=== PATIENT | male | born 1985 | race Caucasian/White ===

== ENCOUNTER 2017-02-14 20:42 | Emergency (ER) | payer OTHER ==
[~2017-02-14] VITALS: Ht 185.4 cm; Wt 101.5 kg
[2017-02-14 20:49] VITALS: Ht 185.4 cm; Wt 101.5 kg
--- NOTE | 2017-02-14 21:18 | DIAGNOSTIC IMAGING REPORT ---
RIGHT KNEE 3 VIEWS CLINICAL HISTORY: Right knee pain status post trauma COMPARISON: None. DISCUSSION: No fractures or dislocations are visualized. There is no conventional radiographic evidence of a joint effusion. IMPRESSION: No fractures or dislocations identified. Electronically signed by: Brando Garcia M.D. 02/14/2017 9:17 PM Dictated Date/Time: 02/14/2017 9:16 PM
[2017-02-14 21:56] VITALS: BP 154/88; PULSE 97; TEMP 36.6; O2SAT 98
--- NOTE | 2017-02-15 02:34 | EMERGENCY ROOM VISIT NOTE ---
ED Visit Note First contact with patient: 21:27 CHIEF COMPLAINT: knee pain HISTORY OF PRESENT ILLNESS: This 31-year-old patient presents to the emergency department after sustaining an injury to the right knee when he got up from his chair today twisting it. The patient denies any other injuries besides their knee. The patient denies swelling or bruising. There is pain lateral side. They rate the pain as throbbing and 5/10. The patient states they are barely able to walk on it. No numbness or tingling. No previous injuries to this knee. No ankle, foot or hip pain. REVIEW OF SYSTEMS: A 6 system review of systems was completed with positives and pertinent negatives listed in the HPI. ALLERGIES: Grapes MEDICATIONS: None PMH: None SOCIAL HISTORY: No drug use PHYSICAL EXAM: Vital Signs: Reviewed Nurse's notes, vital signs stable. GENERAL : Pleasant male, no acute distress, but appears in pain, well-developed, well- nourished. MENTAL STATUS: Alert, oriented to person place and time, and cooperative. MUSCULOSKELETAL: The right knee is not swollen. There is no ecchymosis. There is no joint effusion present. The patient is tender lateral collateral ligament. There is no joint line tenderness. The patella not subluxate. Range of motion is intact. Strength of the quads and hamstrings is 5/ 5. Leah's is negative. Acsimiro's and Anterior Drawer tests are negative. There is no laxity with varus and valgus stressing. The foot and toes are warm and well-perfused. Dorsalis pedis pulse 2+. Sensation to pain and light touch is intact. Capillary refill less than 2 seconds. EMERGENCY DEPARTMENT COURSE: I examined the patient. X-rays of the right knee were reviewed by myself and read by radiology and reveal no fracture. The patient was placed in a knee immobilizer under my direction and the position was satisfactory. The patient was instructed on the use of crutches. The patient was discharged home in good condition. Patient is advised if symptoms persist to follow-up orthopedics or here in the ER sooner for severe pain, numbness, tingling, inability walk, worsening signs or symptoms or as needed. DIAGNOSIS: Right knee sprain DISCHARGE INSTRUCTIONS: As below Current/Historical Medications No Active Prescriptions or Reported Meds Allergies Coded Allergies: Grape (Verified Allergy, Unknown, hives, 02/14/17) Vital Signs Date Time Temp Pulse Resp B/P (MAP) Pulse Ox O2 Delivery O2 Flow Rate FiO2 02/14/17 21:56 36.6 97 18 154/88 98 02/14/17 20:49 101 20 137/93 96 Room Air Departure Information Impression Primary Impression: Right knee sprain Dispostion Home / Self-Care Condition GOOD Prescriptions No Active Prescriptions or Reported Meds Referrals No Doctor, Assigned (PCP) Yunior Peoples D.O. Forms HOME CARE DOCUMENTATION FORM, Work Instructions, Return To Work: 2 days IMPORTANT VISIT INFORMATION Patient Instructions My [facility], ED Sprain Knee Additional Instructions Ibuprofen(Motrin, Advil) may be used for fever or pain. Use 600mg every six hours as needed. Take with food. Avoid using more than 2400mg in a 24 hour period. Do not use 2400mg per day for more than three consecutive days without physician direction. Prolonged inappropriate use can lead to stomach upset or ulcers. This medication can be taken if you need to drive, work, or perform activities which may be dangerous when taking narcotic pain medication. (AND/OR) Acetaminophen(Tylenol) may be used for fever or pain. Use 1000mg every six hours as needed. Avoid using more than 3000mg in a 24 hour period. This medication can be taken if you need to drive, work, or perform activities which may be dangerous when taking narcotic pain medication. Ice compresses for 20 minutes at a time four times daily for 2-3 days. Use the crutches as instructed. Wear knee immobilizer when up and about. Do not have it so tight that you cannot feel your foot. Rest and elevate your injury. Continue current medications. Return to the ER immediately for any numbness, tingling, severe pain, extreme swelling in the extremity or as needed. Call Orthopedics in 5-7 days if symptoms persist to arrange follow up for your injury. Work Instructions Return To Work: 2 days
== END 2017-02-14 21:57 | disposition home or self-care (01) ==
LOC: C.EDB 20:44 → C.EDD 21:57
DX: S83.91XA Sprain of unspecified site of right knee, initial encounter (principal); X50.9XXA Other and unspecified overexertion or strenuous movements or postures, initial encounter